=== PATIENT | female | born 1940 | race Caucasian/White ===

== ENCOUNTER 2021-02-26 11:10 | Outpatient (CLI) | payer MEDICARE | END 2021-02-26 11:11 | disposition home or self-care (01) | LOC: CSHCP 11:10 | PROVIDERS: ATTEND Internal Medicine Critical Care Medicine | DX: M34.9 Systemic sclerosis, unspecified (principal); R05.3 Chronic cough | CPT/HCPCS: 94010; 94726; 94729; 94760 ==

== ENCOUNTER 2021-04-04 08:02 | Outpatient (CLI) | payer MEDICARE | END 2021-04-04 08:03 | disposition home or self-care (01) | LOC: CSHWCC 08:02 | PROVIDERS: ATTEND Nurse Practitioner Family | DX: S91.001D Unspecified open wound, right ankle, subsequent encounter (principal); R60.0 Localized edema | CPT/HCPCS: 11042; 97139; G0463; 99203 ==

== ENCOUNTER 2021-05-29 10:04 | Outpatient (CLI) | payer MEDICARE | END 2021-05-29 10:05 | disposition home or self-care (01) | LOC: CSHWCC 10:04 | PROVIDERS: ATTEND Nurse Practitioner Family | DX: S91.001D Unspecified open wound, right ankle, subsequent encounter (principal); R60.0 Localized edema | CPT/HCPCS: 97139; G0463; 99212 ==